=== PATIENT | female | born 1970 | race Caucasian/White ===

== ENCOUNTER → 2020-05-13 | Day surgery (SDC) | payer BC ==
[2020-05-13 12:26] VITALS: RESP 16
[2020-05-13 13:49] VITALS: BP 130/78; PULSE 60; TEMP 98
--- NOTE | 2020-05-13 14:21 | USB ---
Ultrasound-guided cyst aspiration right breast HISTORY: Right breast cyst 7:00 position The cyst in question within the right 7:00 breast were localized by the undersigned. Procedure was performed by the undersigned. Informed consent was obtained and all of the patients questions were answered. The standard sterile technique was utilized and appropriate local anesthesia was obtained with 1% lidocaine. Under ultrasound guidance an 18-gauge needle was introduced into the lesion in question and a scant amount of fluid was obtained. The lesion was no longer present. Microclip marker was deployed at the site of aspiration. Post procedural mammogram demonstrates appropriate deployment of radiopaque clip marker. The patient tolerated the procedure well and left the department in stable condition. Cytology results are pending. IMPRESSION: Successful cyst aspiration right 7:00 breast with pathology results pending. Pathology Results: Benign RIGHT BREAST, ASPIRATE: Colstrip apocrine lining cells and degenerated cellular material consistent with benign apocrine cyst/cyst contents. Recommendation Follow up ultrasound of the right breast in 6 months. MILO
--- NOTE | 2020-05-14 07:20 | MM ---
Reason for exam: additional evaluation requested from abnormal screening. [facility] Mammo RT Wo CAD CC and LM view(s) were taken of the right breast. ASSESSMENT: Post procedure mammogram for marker placement RECOMMENDATION: Ultrasound of the right breast in 6 months. PENDING PATHOLOGY RESULTS.
== END ==
LOC: RADUSWWP 11:47
PROVIDERS: ATTEND Obstetrics & Gynecology
DX: N60.01 Solitary cyst of right breast (principal)
CPT/HCPCS: 77065; 76942; 19000; A4648; J2001; 88108